=== PATIENT | female | born 1995 | race Caucasian/White ===

== ENCOUNTER 2017-06-12 11:33 | Emergency (ER) | payer MEDICAID | END 2017-06-12 12:15 | disposition home or self-care (01) | LOC: E/R 11:33 | DX: H92.01 Otalgia, right ear (principal); J02.9 Acute pharyngitis, unspecified | CPT/HCPCS: 99283; Z7502 ==

== ENCOUNTER 2017-09-26 19:48 | Emergency (ER) | payer MEDICAID ==
[2017-09-26] MEDS: TRIMETHOPRIM/SULFAMETHOX (DS) TAB PO (22:19)
[2017-09-26] MEDS: CEPHALEXIN 500 MG CAP PO (22:19)
[2017-09-26] MEDS: ACETAMINOPHEN 500 MG TAB PO (22:19)
[2017-09-26] MEDS: LIDOCAINE 1%/EPI 30 ML INJ INJ (22:21)
== END 2017-09-26 22:45 | disposition home or self-care (01) ==
LOC: FTE 19:48
DX: L02.415 Cutaneous abscess of right lower limb (principal); J45.909 Unspecified asthma, uncomplicated
CPT/HCPCS: 10060; 99284-25

== ENCOUNTER 2017-12-19 08:38 | Emergency (ER) | payer MEDICAID | END 2017-12-19 09:24 | disposition home or self-care (01) | LOC: FTE 08:38 | DX: J06.9 Acute upper respiratory infection, unspecified (principal); J45.909 Unspecified asthma, uncomplicated | CPT/HCPCS: 99282; Z7502 ==